=== PATIENT | male | born 1955 | race Caucasian/White ===

== ENCOUNTER 2017-09-08 07:01 | Emergency (ER) | payer SELFPAY ==
[~2017-09-08] VITALS: Ht 172.7 cm; Wt 81.0 kg
[2017-09-08] MEDS ORDERED: SODIUM CHLORIDE 0.9% 1,000 ML IV ONE (07:31)
[2017-09-08 07:51] LABS: BG CARBOXYHEMOGLOBIN 5.4 % (0.5-1.5); BG DEOXYHEMOGLOBIN 1.8 % (0.0-5.0); BG FRACTION INSPIRED OXYGEN 28; BG HCO3 ACT 20.9 mmol/L (22.0-26.0); BG OXYGEN SATURATION 98.1 % (92.0-98.5); BG OXYHEMOGLOBIN 92.8 % (94.0-97.0); BG PCO2 41.8 mmHg (35.0-45.0); BG PH 7.316 (7.350-7.450); BG PO2 144.8 mmHg (75.0-100.0); BG SAMPLE SITE RIGHT RADIAL; BG TOTAL HEMOGLOBIN 15.1 g/dL (12.0-18.0); BG VENT MODE NASAL CANNULA
[2017-09-08 08:06] LABS: EOSINOPHILS % 2.3 % (0.0-5.0); HEMATOCRIT. 40.1 % (42.0-52.0); HEMOGLOBIN. 14.3 g/dL (14.0-18.0); MEAN CORPUSCULAR HEMOGLOBIN 30.4 pg (28.0-32.0); MEAN CORPUSCULAR VOLUME 85.4 fL (80.0-94.0); MEAN PLATELET VOLUME 8.1 fl (7.4-10.4); MONOCYTES % 6.5 % (2.0-8.0); NEUTROPHILS % 72.2 % (40.0-76.0); PLATELET 196 x1000/uL (130-400); RED CELL DISTRIBUTION WIDTH 16.6 % (11.6-14.6)
[2017-09-08 08:18] LABS: CHLORIDE 104 mEq/L (98-107)
[2017-09-08 08:24] LABS: ETHANOL BLOOD 281 mg/dL
[2017-09-08] MEDS ORDERED: SODIUM CHLORIDE 0.9% 1,000 ML IV NR (08:38)
[2017-09-08 10:00] LABS: CLARITY URINE CLEAR (CLEAR); COLOR URINE YELLOW (YELLOW); KETONES URINE NEGATIVE (NEGATIVE); LEUKOCYTE ESTERASE URINE NEGATIVE (NEGATIVE); NITRITE URINE NEGATIVE (NEGATIVE); OCCULT BLOOD URINE NEGATIVE (NEGATIVE); PROTEIN URINE NEGATIVE (NEGATIVE); SPECIFIC GRAVITY URINE 1.019 (1.005-1.030); UROBILINOGEN URINE 0.2 E.U./dL (0.2-1.0)
[2017-09-08 10:37] LABS: *COCAINE SCREEN URINE NEGATIVE (NEGATIVE)
[2017-09-08 10:39] LABS: *BARBITURATES SCREEN URINE NEGATIVE (NEGATIVE); CANNABINOID URINE SCREEN NEGATIVE (NEGATIVE)
[2017-09-08 10:40] LABS: PHENCYCLIDINE URINE SCREEN NEGATIVE (NEGATIVE)
[2017-09-08 10:42] LABS: *BENZODIAZEPINES SCREEN URINE NEGATIVE (NEGATIVE); OPIATES URINE SCREEN NEGATIVE (NEGATIVE)
[2017-09-08 10:45] LABS: METHADONE URINE SCREEN NEGATIVE (NEGATIVE)
[2017-09-08 10:46] LABS: *AMPHETAMINES SCREEN URINE NEGATIVE (NEGATIVE)
[2017-09-08 11:55] VITALS: BP 140/80
== END 2017-09-08 11:57 | disposition home or self-care (01) ==
LOC: ER 09:29
DX: T59.811A Toxic effect of smoke, accidental (unintentional), initial encounter (principal); J70.5 Respiratory conditions due to smoke inhalation; E11.9 Type 2 diabetes mellitus without complications; F10.129 Alcohol abuse with intoxication, unspecified; Y92.89 Other specified places as the place of occurrence of the external cause
CPT/HCPCS: 36415; 36600; 70450; 71045; 80053; 80305; 80307; 80329; 81003; 82375; 82805; 83605; 85025; 96360; 96361; 99285; G0482; J7030; Z7610